=== PATIENT | male | born 1995 | race Caucasian/White ===

== ENCOUNTER 2016-08-31 14:53 | Emergency (ER) | payer OTHER ==
--- NOTE | 2016-08-31 15:59 | DIAGNOSTIC IMAGING REPORT ---
PROCEDURE: CT HEAD WITHOUT CONTRAST INDICATION: HEAD INJURY, HX OF SEIZURE, ALTERED MENTAL STATUS TECHNIQUE: Axial CT images were acquired through the head. Coronal and sagittal reformations were created. COMPARISON: None. FINDINGS: No intracranial hemorrhage or extraaxial fluid collections. Ventricles are normal in size, shape and position. There is no mass, mass effect or midline shift. The alfaro-white matter differentiation is normal. There is no edema. The calvarium is intact. The paranasal sinuses and mastoid air cells are normally aerated. The extracranial soft tissues and orbits are normal. IMPRESSION: 1. No CT evidence of acute intracranial process. 2. Findings discussed with emergency department at 04:[address] scans at this facility use dose modulation, iterative reconstruction, and/or weight-based dosing when appropriate to reduce radiation dose to as low as reasonably achievable.
--- NOTE | 2016-08-31 18:09 | DIAGNOSTIC IMAGING REPORT ---
PROCEDURE: XR RIBS UNILAT W/PA CHEST-LT INDICATION: POSSIBLE TRAUMA FROM SEIZURE SEVERAL DAYS AGO TECHNIQUE: Two views of the left ribs with single PA view chest. COMPARISON: None. FINDINGS: LEFT RIBS: No displaced rib fractures. No suspicious rib lesions. CHEST: Normal cardiomediastinal contour. Clear lungs without pleural effusion, pneumothorax, or contusion. The other visible osseous structures are intact. IMPRESSION: 1. Intact left ribs. 2. Normal chest without radiographic evidence of trauma.
--- NOTE | 2016-08-31 18:31 | ED NURSING NOTES ---
Clinical Report - Nurses [facility] [address] [place] [address] 08/31/2016 14:57 Patient: JAMAL STERLING TRIAGE Triage time 15:Aug 31 2016. Acuity: LEVEL 3. Chief Complaint: ALTERED MENTAL STATUS and CONFUSED and (dizzy). Alert. No acute distress. GENNA COMA SCORE: [place] Coma Scale: 15- eyes open spontaneously (4); best verbal response- oriented x 4 (5); best motor response- obeys commands (6). --15:13 Coco Kc R.N. 15:06 08/31/16. BP: 117/68. HR: 67. RR: 13. O2 saturation: 100%. Temp: 98.2 F. Pain level now: 09/16. Additional comments: aching. --15:13 Coco Kc R.N. Weight: 68 kg stated. Height/Length: 70 inches Per Patient. BMI: 21.5. --15:11 Coco Kc R.N. Medications HumaLOG Subcutaneous. --15:09 oCco Kc R.N. Lantus Subcutaneous. --15:09 Coco Kc R.N. Keppra Oral. --15:09 Coco Kc R.N. Allergies None. --15:09 Coco Kc R.N. History Arrived by private vehicle. Historian: family. Accompanied by family. This started about 6 days. ( pts mother states that pt had seizure last week and then again on Sunday. Mother states pt was hospitalized on Sunday and since he was released he has had dizziness confusion, trouble with thoughts and speaking and some weakness.). He has had weakness. PAST MEDICAL HX: Immunizations: up-to-date. SOCIAL HX: Never smoker. No alcohol use or drug use. No infectious disease exposure. SELF HARM ASSESSMENT: A self harm assessment was performed. The patient answered "no" to the question "Do you have thoughts of harming or killing yourself?". FALL RISK ASSESSMENT: Fall risk assessment completed. No fall risk identified. NUTRITIONAL RISK ASSESSMENT: The nutritional risk assessment revealed no deficiencies. FUNCTIONAL ASSESSMENT: Functional assessment: no impairments noted. LEARNING NEEDS ASSESSMENT: The learning needs assessment revealed no barriers. ABUSE ASSESSMENT: Abuse assessment: The patient was asked "Do you feel safe in your home?". SKIN INTEGRITY ASSESSMENT: Skin integrity risk assessment completed. No skin integrity risk identified. --15:13 Coco Kc R.N. PROBLEMS: MVP. Back Injury. Diabetes Mellitus. Seizure. --15:10 Coco Kc R.N. ADDITIONAL SURGERIES: Dental Surgery. --15:10 Coco Kc R.N. Interventions ID band on patient. To room. --15:13 Coco Kc R.N. PHYSICAL ASSESSMENT GENERAL / NEURO / PSYCH: Alert. Oriented X 4. Patient appears well-nourished and neat and clean. RESPIRATORY: Respirations not labored. CVS: Capillary refill less than 2 seconds. GI / : Abdomen soft and nontender. SKIN: Skin is warm and dry. --15:14 Coco Kc R.N. NURSING PROGRESS NOTES groundwater monitoring technician, pulse oximeter and NIBP monitor placed on patient; front desk monitor- Lead II; monitor alarms on. Patient gowned. Head of bed elevated. Patient identifiers checked. Call light placed in reach. Side rails up x 2. Bed placed in lowest position. Brakes of bed on. --15:14 Coco Kc R.N. 15:41. Patient transported to CT by stretcher with tech. --15:44 Micki Miller ER Tech1 15:39 08/31/2016 Site #1 started via IV in the right antecubital space with an 20g angiocath (Placed by SURI Buckley). --15:54 Jonas Gold R.N. 15:54 08/31/2016 Started bag #1 1000 mL IV Fluids IV NS (Saline); bolus of 1000 mL over 1 hour(s) via site #1 via dial-a-flow. Allergies verified and confirmed 5 rights. IV patency established. IV site checked: no pain, redness, or swelling. IV flushed thoroughly pre- and post-medication administration. Completed per protocol. --15:54 Jonas Gold R.N. GENERAL / NEURO / PSYCH: The patient reports anxiety (pt anxious over IV states that he is having pain after 700cc infused. No redness or blancing noted. offered to relocate IV and pt declined stating that he will keep this one.). Alert. Oriented X 4. --16:31 Coco Kc R.N. 16:28 08/31/16. BP: 101/58. HR: 73. RR: 12. O2 saturation: 99%. Pain level now: 0/10. --16:31 Coco Kc R.N. 16:56. Finger stick glucose: 232 mg/dL; performed by tech; result shown to the ED physician. --16:56 Micki Miller ER Tech1 ( MD in room talking with patient and mother.). --17:11 Coco Kc R.N. 17:05 08/31/16. --17:11 Coco Kc R.N. 17:16 08/31/16. BP: 110/62. HR: 63. RR: 15. O2 saturation: 97%. Pain level now: 0/10. --17:16 Coco Kc R.N. DISPOSITION / DISCHARGE Departure time: 19:Aug 31 2016. Condition at departure: unchanged. No learning barriers present. Discharge instructions provided and reviewed with the patient. Reviewed referral to a primary care physician for followup. Patient verbalized understanding. Written instructions provided in Ukrainian. The patient was discharged home and accompanied by parent. He left the Emergency Department ambulatory and via private vehicle. Parent driving. FALL RISK ASSESSMENT: Fall risk assessment completed. No fall risk identified. --19:07 Coco Kc R.N. 19:06 08/31/16. BP: 105/63. HR: 55. RR: 16. O2 saturation: 97%. Pain level now: 0/10. --19:07 Coco Kc R.N. Locked/Released at 09/05/2016 13:00 by Celeste Buenrostro R.N.
--- NOTE | 2016-08-31 18:31 | ED NURSING NOTES ---
Clinical Report - Nurses [facility] [address] [place] [address] 08/31/2016 14:57 Patient: JAMAL STERLING TRIAGE Triage time 15:Aug 31 2016. Acuity: LEVEL 3. Chief Complaint: ALTERED MENTAL STATUS and CONFUSED and (dizzy). Alert. No acute distress. GENNA COMA SCORE: [place] Coma Scale: 15- eyes open spontaneously (4); best verbal response- oriented x 4 (5); best motor response- obeys commands (6). --15:13 Coco Kc R.N. 15:06 08/31/16. BP: 117/68. HR: 67. RR: 13. O2 saturation: 100%. Temp: 98.2 F. Pain level now: 09/16. Additional comments: aching. --15:13 Coco Kc R.N. Weight: 68 kg stated. Height/Length: 70 inches Per Patient. BMI: 21.5. --15:11 Coco Kc R.N. Medications HumaLOG Subcutaneous. --15:09 Coco Kc R.N. Lantus Subcutaneous. --15:09 Coco Kc R.N. Keppra Oral. --15:09 Coco Kc R.N. Allergies None. --15:09 Coco Kc R.N. History Arrived by private vehicle. Historian: family. Accompanied by family. This started about 6 days. ( pts mother states that pt had seizure last week and then again on Sunday. Mother states pt was hospitalized on Sunday and since he was released he has had dizziness confusion, trouble with thoughts and speaking and some weakness.). He has had weakness. PAST MEDICAL HX: Immunizations: up-to-date. SOCIAL HX: Never smoker. No alcohol use or drug use. No infectious disease exposure. SELF HARM ASSESSMENT: A self harm assessment was performed. The patient answered "no" to the question "Do you have thoughts of harming or killing yourself?". FALL RISK ASSESSMENT: Fall risk assessment completed. No fall risk identified. NUTRITIONAL RISK ASSESSMENT: The nutritional risk assessment revealed no deficiencies. FUNCTIONAL ASSESSMENT: Functional assessment: no impairments noted. LEARNING NEEDS ASSESSMENT: The learning needs assessment revealed no barriers. ABUSE ASSESSMENT: Abuse assessment: The patient was asked "Do you feel safe in your home?". SKIN INTEGRITY ASSESSMENT: Skin integrity risk assessment completed. No skin integrity risk identified. --15:13 Coco Kc R.N. PROBLEMS: MVP. Back Injury. Diabetes Mellitus. Seizure. --15:10 Coco Kc R.N. ADDITIONAL SURGERIES: Dental Surgery. --15:10 Coco Kc R.N. Interventions ID band on patient. To room. --15:13 Coco Kc R.N. PHYSICAL ASSESSMENT GENERAL / NEURO / PSYCH: Alert. Oriented X 4. Patient appears well-nourished and neat and clean. RESPIRATORY: Respirations not labored. CVS: Capillary refill less than 2 seconds. GI / : Abdomen soft and nontender. SKIN: Skin is warm and dry. --15:14 Coco Kc R.N. NURSING PROGRESS NOTES groundwater monitoring technician, pulse oximeter and NIBP monitor placed on patient; groundwater monitoring technician- Lead II; monitor alarms on. Patient gowned. Head of bed elevated. Patient identifiers checked. Call light placed in reach. Side rails up x 2. Bed placed in lowest position. Brakes of bed on. --15:14 Coco Kc R.N. 15:41. Patient transported to CT by stretcher with tech. --15:44 Micki Miller ER Tech1 15:39 08/31/2016 Site #1 started via IV in the right antecubital space with an 20g angiocath (Placed by SURI Buckley). --15:54 Jonas Gold R.N. 15:54 08/31/2016 Started bag #1 1000 mL IV Fluids IV NS (Saline); bolus of 1000 mL over 1 hour(s) via site #1 via dial-a-flow. Allergies verified and confirmed 5 rights. IV patency established. IV site checked: no pain, redness, or swelling. IV flushed thoroughly pre- and post-medication administration. Completed per protocol. --15:54 Jonas Gold R.N. GENERAL / NEURO / PSYCH: The patient reports anxiety (pt anxious over IV states that he is having pain after 700cc infused. No redness or blancing noted. offered to relocate IV and pt declined stating that he will keep this one.). Alert. Oriented X 4. --16:31 Coco Kc R.N. 16:28 08/31/16. BP: 101/58. HR: 73. RR: 12. O2 saturation: 99%. Pain level now: 0/10. --16:31 Coco Kc R.N. 16:56. Finger stick glucose: 232 mg/dL; performed by tech; result shown to the ED physician. --16:56 Micki Miller ER Tech1 ( MD in room talking with patient and mother.). --17:11 Coco Kc R.N. 17:05 08/31/16. --17:11 Coco Kc R.N. 17:16 08/31/16. BP: 110/62. HR: 63. RR: 15. O2 saturation: 97%. Pain level now: 0/10. --17:16 Coco Kc R.N. DISPOSITION / DISCHARGE Departure time: 19:Aug 31 2016. Condition at departure: unchanged. No learning barriers present. Discharge instructions provided and reviewed with the patient. Reviewed referral to a primary care physician for followup. Patient verbalized understanding. Written instructions provided in Welsh. The patient was discharged home and accompanied by parent. He left the Emergency Department ambulatory and via private vehicle. Parent driving. FALL RISK ASSESSMENT: Fall risk assessment completed. No fall risk identified. --19:07 Coco Kc R.N. 19:06 08/31/16. BP: 105/63. HR: 55. RR: 16. O2 saturation: 97%. Pain level now: 0/10. --19:07 Coco Kc R.N. Locked/Released at 09/05/2016 13:00 by Celeste Buenrostro R.N.
--- NOTE | 2016-08-31 18:31 | ED CLINICAL REPORT ---
Clinical Report - Physicians/Mid Levels [facility] [address] [place] [address] 08/31/2016 14:57 Patient: JAMAL STERLING Time Seen: 1511. Arrived- By private vehicle. Historian- patient and mother. HISTORY OF PRESENT ILLNESS Chief Complaint: CHANGED MENTAL STATUS. The patient has "felt strange" and had trouble concentrating. This started past several days and is still present (unchanged). It was abrupt in onset and has been constant but is not gone now. Patient was last known well (several days ago). (known seizure hx. had one prior to the onset of symptoms. recovered without problems.). No weakness, numbness or recent fall. No difficulty walking. Usually is alert and oriented X3 and usually has normal mobility. (hx of DM 1 and on insulin. also on muscle relaxers but reportedly taking them infrequently.). Similar symptoms previously: None. Recent medical care: The patient was seen recently by a health care provider. REVIEW OF SYSTEMS No fever, chest pain or difficulty breathing. He sustained a head injury (possible from seizure and fall. + LOC). reports anterior chest wall pain after the seizure. constant. worsen with movement. All systems otherwise negative, except as recorded above. PAST HISTORY See nurses notes. Medications: Keppra Oral. Lantus Subcutaneous. HumaLOG Subcutaneous. Allergies: None. SOCIAL HISTORY Never smoker. History of occasional drug use: marijuana. No alcohol use. No recent travel. Is a local resident. PHYSICAL EXAM Appearance: Alert. No acute distress. Head: Head atraumatic. Eyes: Pupils equal, round and reactive to light. ENT: Normal ENT inspection. Airway intact. Moist mucous membranes. Pharynx normal. (no dalton sign. No raccoon eyes. Normocephalic. Atraumatic. No hematoma.). Neck: Normal inspection. Neck supple. No meningeal signs. CVS: Normal heart rate and rhythm. Heart sounds normal. Pulses normal. Respiratory: No respiratory distress. Breath sounds normal. Abdomen: Soft and nontender. No organomegaly. Back: Normal inspection. Skin: Skin warm and dry. Normal skin color. No rash. Normal skin turgor. Extremities: Extremities exhibit normal ROM. No lower extremity edema. Neuro: Alert. Oriented X 3. Mood/affect normal. Speech normal. Cranial nerves normal (as tested). No cerebellar findings. No motor deficit. No sensory deficit. Reflexes normal. LABS, X-RAYS, AND EKG Chest X-ray: (PROCEDURE: CT HEAD WITHOUT CONTRAST INDICATION: HEAD INJURY, HX OF SEIZURE, ALTERED MENTAL STATUS TECHNIQUE: Axial CT images were acquired through the head. Coronal and sagittal reformations were created. COMPARISON: None. FINDINGS: No intracranial hemorrhage or extraaxial fluid collections. Ventricles are normal in size, shape and position. There is no mass, mass effect or midline shift. The alfaro-white matter differentiation is normal. There is no edema. The calvarium is intact. The paranasal sinuses and mastoid air cells are normally aerated. The extracranial soft tissues and orbits are normal. IMPRESSION: 1. No CT evidence of acute intracranial process.). The X-rays were independently viewed by me and interpreted by the radiologist. The X-rays were discussed with the radiologist (pacs and phone). CT Head: (PROCEDURE: CT HEAD WITHOUT CONTRAST INDICATION: HEAD INJURY, HX OF SEIZURE, ALTERED MENTAL STATUS TECHNIQUE: Axial CT images were acquired through the head. Coronal and sagittal reformations were created. COMPARISON: None. FINDINGS: No intracranial hemorrhage or extraaxial fluid collections. Ventricles are normal in size, shape and position. There is no mass, mass effect or midline shift. The alfaro-white matter differentiation is normal. There is no edema. The calvarium is intact. The paranasal sinuses and mastoid air cells are normally aerated. The extracranial soft tissues and orbits are normal. IMPRESSION: 1. No CT evidence of acute intracranial process.). The study was independently viewed by me and interpreted by the radiologist. The study was discussed with the radiologist (via pacs and phone). Laboratory Tests: UA-Culture if indicated: (CHAPO: 08/31/2016 17:12) ( MsgRcvd 08/31/2016 17:38) Final results Test Result Flag Units (Reference) URINE COLOR YELLOW URINE APPEARANCE CLEAR URINE GLUCOSE TRACE (NEGATIVE) URINE BILIRUBIN NEGATIVE (NEGATIVE) URINE KETONE NEGATIVE (NEGATIVE) URINE SPECIFIC GRAVITY 1.020 (1.010-1.030) URINE PH 7.0 (5.0-8.0) URINE PROTEIN 1+ (NEGATIVE) URINE UROBILINOGEN 0.2 EU/dL (0.2-1.0) URINE NITRITE NEGATIVE (NEGATIVE) URINE BLOOD NEGATIVE (NEGATIVE) URINE LEUK ESTERASE NEGATIVE (NEGATIVE) URINE RBC 0-1 rbc/hpf (0-1) URINE WBC 0-1 wbc/hpf (0-1) URINE EPITHELIAL CELLS NONE SEEN EPI/hpf (0-5) URINE BACTERIA TRACE (<1+) (NONE SEEN) 1+ MUCOUS URINE COMMENT CULT NOT INDICATED URINE CULTURES ARE SET-UP BASED ON THE FOLLOWING CRITERIA:POSITIVE NITRITEPOSITIVE LEUKOCYTE ESTERASEGREATER THAN 10 WHITE BLOOD CELLSMODERATE (2+) OR GREATER BACTERIA CBC w Diff: (CHAPO: 08/31/2016 15:05) ( MsgRcvd 08/31/2016 15:33) Final results Test Result Flag Units (Reference) WHITE BLOOD COUNT 7.6 K/uL (4.5-11.5) RED BLOOD COUNT 5.34 M/uL (4.50-5.90) HEMOGLOBIN 15.4 gm/dL (13.5-17.5) HEMATOCRIT 45.8 % (41.0-53.0) MEAN CELL VOLUME 86 fL (80-100) MEAN CORPUSCULAR HGB 29 pg (26-34) MEAN CORPUSCULAR HGB CONC 34 g/dL (31-37) RED CELL DISTRIBUTION WIDTH 12.7 % (11.6-14.8) PLATELET COUNT 240 K/uL (150-400) NEUTROPHIL % 64.4 % (50-75) LYMPH % 26.9 % (25-40) MONO % 6.8 % (3-14) EOSINOPHIL % 1.3 % (0-4) BASOPHIL % 0.6 % (0-2) PT with INR: (CHAPO: 08/31/2016 15:05) ( NmgRcvd 08/31/2016 15:34) Final results Test Result Flag Units (Reference) INR 1.1 (0.8-1.2) Low Intensity Therapy: INR 1.5-2.0 PT range 18.5-23.1Mod.Intensity Therapy: INR 2.0-3.0 PT range 23.1-31.5High Intensity Therapy: INR 2.5-3.5 PT range 27.4-35.5High Intensity Therapy 2: INR 3.0-4.0 PT range 31.5-39.3 Urine Drug Screen: (CHAPO: 08/31/2016 17:12) ( [facility] [place] Final results Test Result Flag Units (Reference) AMPHETAMINE/METHAMPHETAMINE NEGATIVE (NEGATIVE) BARBITURATE NEGATIVE (NEGATIVE) BENZODIAZEPINE NEGATIVE (NEGATIVE) CANNABINOID POSITIVE H (NEGATIVE) COCAINE NEGATIVE (NEGATIVE) ECSTASY NEGATIVE (NEGATIVE) METHADONE NEGATIVE (NEGATIVE) OPIATE NEGATIVE (NEGATIVE) The urine drug screen is a qualitative screening test fordrug overdose and abuse. All screen results should beconsidered as presumptive.Drugs screened for are as follows:BenzodiazepinesCocaineAmphetamines/MetamphetaminesTHC (Tetrahydrocannabinol)OpiatesBarbituratesEcstasyMethadonePositive results are unconfirmed. For confirmation, notifythe lab for the specimen to be sent to the reference lab.All confirmations must be performed by a differentmethodology.The ingestion of natural herbal and plant productscontaining Ephedra/Ephedra metabolites can produce in urineone or more substances capable of cross reacting withamphetamine/methamphetamine immunoassays. These testsprovide a preliminary result only. A more specificalternative chemical method must be used to obtain aconfirmed analytical result. CMP: (CHAPO: 08/31/2016 15:05) ( NmgRcvd 08/31/2016 15:58) Final results Test Result Flag Units (Reference) GLUCOSE 144 H mg/dL (70-110) BUN 16 mg/dL (7-18) CREATININE 0.8 mg/dL (0.6-1.3) Estimated GFR >60 mL/min Estimated GFR- >60 mL/min Note: Persistent reduction over 3 months in eGFR<60 mL/min/1.73 m2 defines CKD. Patients with eGFR values>=60 mL/min/1.73 m2 may also have CKD if evidence ofpersistent proteinuria. Additional information may be foundat www.kidney.org. SODIUM 144 mmol/L (136-145) POTASSIUM 3.8 mmol/L (3.5-5.1) CHLORIDE 106 mmol/L (98-107) CARBON DIOXIDE 28 mmol/L (21-32) CALCIUM 8.5 mg/dL (8.5-10.1) TOTAL PROTEIN 7.2 g/dL (6.4-8.2) ALBUMIN 4.0 g/dL (3.3-5.0) BILIRUBIN, TOTAL 0.3 mg/dL (0.0-1.0) ALKALINE PHOSPHATASE 72 U/L (46-116) AST (SGOT) 25 U/L (15-37) ALT (SGPT) 28 U/L (12-78) MAGNESIUM 1.9 mg/dL (1.8-2.4) THYROID STIMULATING HORMONE 0.704 uIU/mL (0.34-3.74) . PROGRESS AND PROCEDURES Course of Care: The patient is a pleasant 21-year-old male presenting for evaluation of altered mental status after having a seizure. Incident had occurred several days ago. Patient still withdifficulty with concentrating. Likely post concussive syndrome. Patient will be evaluated for any indolent type of headbleed. Patient also be fired for any rib injury noted from patient's seizure. Laboratory studies will also be ordered for the patient's reported altered mental status including any electrolyte abnormalities from any metabolic derangements. Be particularly concerned for possible diabetic ketoacidosis in a history of DM type I. We'll to be fighting for any signs of thyroid abnormality given the patient's symptoms. Patient is agreeable to the treatment and plan. All questions have been answered. The patient's workup was noted for no acute abnormalities on the patient's chest x-ray as well as CT scan of the head. Urinalysis did not show any signs of urinary tract infection. Diabetes has been well-controlled. No ketones in the urinalysis. No signs of diabetic ketoacidosis. Thyroid as well as blood count are noted to be normal. Because of the patient's negative workup here in the emergency department, do not feel patient requires admission to the hospital or further emergency department workup/evaluation. Several possible causes for the patient's altered mental status have been found. Patient with a positive urine drug screen for marijuana. Patient also has been reported taking his muscle relaxant. Patient could also have postconcussive syndrome following the seizure several days ago. Had explained to the patient as well as the patient's mother the difficulty with evaluating those types of problems and recommended patientabstain from any sedative type of medicationsto see if his symptoms improved. If not been postconcussive syndrome more likely. I discussion with the patient in regards to his workup here in the emergency department including diagnosis, home care, follow-up, and return precautions. All questions have been answered. The patient and mother expressed understanding of these instructions and was agreeable to them. Disposition: Discharged. Condition: good. CLINICAL IMPRESSION Acute mental status change. Generalized seizure (recheck). 08/31/2016 16:28 BP: 101/58. HR: 73. RR: 12. O2 saturation: 99%. Pain level now: 0/10. Oxygen saturation normal. Mild hyperglycemia (acute secondary to DM 1). Single contusion to the left anterior chest. INSTRUCTIONS Warnings: GENERAL WARNINGS: Return or contact your physician immediately if your condition worsens or changes unexpectedly, if not improving as expected, or if other problems arise. Specifically return if pain, vomiting, bleeding, breathing difficulty or fever. Your Current Medications: CONTINUE TAKING THE FOLLOWING MEDICATIONS: HumaLOG Subcutaneous. Keppra Oral. Lantus Subcutaneous. Follow-up: Return to the emergency department as needed. Follow up with your doctor in three days. Reason for referral: recheck today's concerns. Screening today revealed the patient's blood pressure to be in the normal range. The patient should follow up with a primary care provider for blood pressure management. Understanding of the discharge instructions verbalized by patient and parent. Follow-up with: Rachid Cornelius MD, Neurology, , [address], , [place], [id number] Follow up. Call for the next available appointment. Reason for referral: recheck today's concerns. Summary of care provided to patient and family via paper. (Electronically signed by Soham Hightower Dr. 09/04/2016 6:51)
--- NOTE | 2016-08-31 18:31 | ED ORDER SUMMARY ---
..... 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) (15:18 08/31/2016 Duy Ivey) (15:53 MCjohnnak R.N.) CBC w Diff Urgent (15:19 08/31/2016 Duy Ivey) (Ack 15:19 Milly) (16:05 KKnebel R.N.) CMP Urgent (15:08/31/2016 Duy Ivey) (Ack 15:19 Milly) (16:05 KKnebel R.N.) UA-Culture if indicated Urgent (15:08/31/2016 Duy Ivey) (Ack 15:19 Milly) (18:03 KKnebel R.N.) PT with INR Urgent (15:19 08/31/2016 Duy Ivey) (Ack 15:19 Milly) (16:05 JESSIEnebel R.N.) Urine Drug Screen Urgent (15:19 08/31/2016 Duy Ivey) (Ack 15:19 Milly) (18:03 KKnebel R.N.) TSH Urgent (15:08/31/2016 Duy Ivey) (Ack 15:19 Milly) (16:05 JESSIEnebel R.N.) Magnesium Urgent (15:19 08/31/2016 Duy Ivey) (Ack 15:19 Milly) (16:05 JESSIEnebel R.N.) Pulse oximeter (15:08/31/2016 Duy Ivey) (15:53 Chongk R.N.) POC Glucose (15:08/31/2016 Duy Ivey) (16:05 JESSIEnebel R.N.) CT Head wo Cont Urgent (15:35 08/31/2016 Duy Ivey) (Ack 15:40 Milly) (16:34 MCampbell) Ribs Unilat w PA Chest Left Urgent (17:10 08/31/2016 Duy Ivey) (Ack 17:12 AMcQuoid ER Tech1) (17:37 Milly) MEDICATION ORDERS: IV FLUIDS: IV NS : initial bolus 1000 mL (1000 mL/hr), then none - for X1 (NOW) (15:18 08/31/2016 uDy Ivey) (15:54 Mandie Hicks) ORDER SHEET NOTES: [Electronically signed by Soham Hightower Dr. (06:51 09/04/2016)] [Electronically signed by Celeste Buenrostro R.N. (13:00 09/05/2016)] [Electronically locked/signed by Celeste Buenrostro R.N. (13:00 09/05/2016)]
--- NOTE | 2016-08-31 18:31 | ED ORDER SUMMARY ---
..... 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 Tanbark (Continuous) (seizures) (15:18 08/31/2016 Duy Ivey) (15:53 MCjohnnak R.N.) CBC w Diff Urgent (15:19 08/31/2016 Duy Ivey) (Ack 15:19 Milly) (16:05 KKnebel R.N.) CMP Urgent (15:08/31/2016 Duy Ivey) (Ack 15:19 Milly) (16:05 KKnebel R.N.) UA-Culture if indicated Urgent (15:08/31/2016 Duy Ivey) (Ack 15:19 Milly) (18:03 KKnebel R.N.) PT with INR Urgent (15:19 08/31/2016 Duy Ivey) (Ack 15:19 Milly) (16:05 JESSIEnebel R.N.) Urine Drug Screen Urgent (15:19 08/31/2016 Duy Ivey) (Ack 15:19 Milly) (18:03 KKnebel R.N.) TSH Urgent (15:08/31/2016 Duy Ivey) (Ack 15:19 Milly) (16:05 JESSIEnebel R.N.) Magnesium Urgent (15:19 08/31/2016 Duy Ivey) (Ack 15:19 Milly) (16:05 JESSIEnebel R.N.) Pulse oximeter (15:08/31/2016 Duy Ivey) (15:53 Chongk R.N.) POC Glucose (15:08/31/2016 Duy Ivey) (16:05 JESSIEnebel R.N.) CT Head wo Cont Urgent (15:35 08/31/2016 Duy Ivey) (Ack 15:40 Milly) (16:34 MCampbell) Ribs Unilat w PA Chest Left Urgent (17:10 08/31/2016 Duy Ivey) (Ack 17:12 AMcQuoid ER Tech1) (17:37 Milly) MEDICATION ORDERS: IV FLUIDS: IV NS : initial bolus 1000 mL (1000 mL/hr), then none - for X1 (NOW) (15:18 08/31/2016 Duy Ivey) (15:54 Mandie Hicks) ORDER SHEET NOTES: [Electronically signed by Soham Hightower Dr. (06:51 09/04/2016)] [Electronically signed by Celeste Buenrostro R.N. (13:00 09/05/2016)] [Electronically locked/signed by Celeste Buenrostro R.N. (13:00 09/05/2016)]
--- NOTE | 2016-09-05 13:00 | ED MAR SUMMARY ---
..... Medication Administration Record [facility] [address] [place] [address] Patient: JAMAL STERLING Visit ID: [id number] 21y, M Weight: 68.0 kg Height/Length: 70 in BMI: 21.5 ALLERGIES: None Start 15:54 08/31/2016 Jonas Gold R.N. Medication Administered: IV NS (SALINE), Dose: IV Fluids, Bolus: 1000 mL over 1 hour(s), Dispensed: 1000 mL bag, Site: #1 right AC. Medication Ordered: IV NS : initial bolus 1000 mL (1000 mL/hr), then none - for X1 (NOW).
--- NOTE | 2016-09-05 13:00 | ED MED RECONCILIATION SUMMARY ---
Patient: JAMAL STERLING Medication Reconciliation Report [facility] VisitID: [id number] [address] [place] [place] [address] 21y, M Registration Date/Time: 08/31/2016 Weight: 68.0 kg Height/Length: 70 in. BMI: 21.5 ALLERGIES: None The patient's Home Medications are listed below: CONTINUE TAKING THE FOLLOWING MEDICATIONS: HumaLOG Subcutaneous Keppra Oral Lantus Subcutaneous The source(s) of the original Home Medication information: Not obtained. The following Medications were given to the patient in the Emergency Department: IV NS IV Fluids bolus 1000 mL over 1 hour(s), administered: 08/31/2016 3:54:00 PM The following Medications were prescribed to the patient: None.
--- NOTE | 2016-09-05 13:00 | ED DISCHARGE INSTRUCTIONS ---
Patient: JAMAL STERLING General Instructions [facility] VisitID: [id number] [address] [place] [address] 21y, M Registration Date/Time: 08/31/2016 Acute mental status change. Generalized seizure (recheck). 08/31/2016 16:28 BP: 101/58. HR: 73. RR: 12. O2 saturation: 99%. Pain level now: 0/10. Oxygen saturation normal. Mild hyperglycemia (acute secondary to DM 1). Single contusion to the left anterior chest. INSTRUCTIONS Warnings: GENERAL WARNINGS: Return or contact your physician immediately if your condition worsens or changes unexpectedly, if not improving as expected, or if other problems arise. Specifically return if pain, vomiting, bleeding, breathing difficulty or fever. Your Current Medications: CONTINUE TAKING THE FOLLOWING MEDICATIONS: HumaLOG Subcutaneous. Keppra Oral. Lantus Subcutaneous. Follow-up: Return to the emergency department as needed. Follow up with your doctor in three days. Reason for referral: recheck today's concerns. Screening today revealed the patient's blood pressure to be in the normal range. The patient should follow up with a primary care provider for blood pressure management. Understanding of the discharge instructions verbalized by patient and parent. Follow-up with: Rachid Cornelius MD, Neurology, , [id number], , [place], [id number] Follow up. Call for the next available appointment. Reason for referral: recheck today's concerns. Summary of care provided to patient and family via paper. ADDITIONAL INFORMATION Altered Level Of Consciousness (Child) Level of consciousness is a measure of a persons ability to interact with other people and to react to the surroundings. A child with an altered level of consciousness may be irritable for a number of hours. The child cannot be calmed by holding, rocking, or feeding. Some children may be hyperactive and cant sleep. Others may be very sleepy and difficult to wake. Affected children may appear limp, with poor muscle tone. They may not respond to touch or voices. Their look may be vacant or blank. They may not make eye contact. Their cry may be weak and feeble. Some children may not move for a long time or show little interest in moving. They may be confused. There are many causes of altered consciousness. Generally, they are divided into medical reasons or injuries. The child may have low blood sugar, an infection, a metabolic abnormality, or a systemic disease. Other causes include drugs, abuse, or injuries such as a fall. A decreased level of consciousness is a medical emergency. Doctors must quickly determine the cause. This may include laboratory, radiology, and other types of testing. Initial treatment stabilizes breathing and heart rate. An intravenous (IV) line is used to give medications. Once the cause is determined,specific treatment for that cause is given. In almost all cases, the child will be admitted to the hospital for observation. Home Care: Medications: If any medications are prescribed, follow the doctors instructions for giving them to your child. General Care: Observe your child carefully for any changes in behavior. Stay with your child if you notice any altered behavior. If your child has diabetes, make sure that any approved medication is given on time and as prescribed. Give your child frequent healthy snacks and meals. Ensure your child is supervised while playing sports. Appropriate protective gear should be worn at all times. Follow Up as advised by the doctor or our staff. Get Prompt Medical Attention if any of the following occurs: Fever greater than 100.4F (38C) Extreme tiredness or difficulty waking; hyperactivity Lack of interest in the surroundings Poor muscle tone or limpness Weak, feeble cry No eye contact or response to touch or voices Increased headache Seizure Recurrent Seizure [Adult] You have had another seizure today. A common cause of recurrent seizure is missing doses of the seizure medicine. However, sometimes seizures are difficult to control even when you take the medicine correctly. If this is the case for you, it may be necessary to increase your dosage or add or change to another medicine. Home Care: For This Seizure: Since seizures are not predictable, you must avoid doing anything that might cause danger to you or others if you have another one. Therefore, until the seizures are under good control, take these precautions: Do not drive a car, bicycle or motorcycle Do not operate dangerous equipment such as power tools Use a shower instead of a bath Do not swim or climb (ladders, trees, roofs) Tell your close friends and relatives about your seizure and teach them what to do for you if it happens again. If you were prescribed a medicine to prevent seizures, take it exactly as directed. It does not work when taken on an "as needed" basis. Missing doses will increase the risk of having another seizure. If you miss a dose, take the missed dose as soon as you remember. If it is almost time for your next dose, skip the missed dose. Restart the medicine at your next scheduled time. Do not take extra medicine to make up the missed dose. Wear a "Medic-Alert" bracelet to advise emergency personnel of your condition. For Future Seizures: If You Are Alone: If you feel a seizure coming on, the best thing to do is to lie down on a bed or on the floor. Lie on your side, not on your back. This will prevent falling, promote drainage of oral secretions out of the mouth and prevent choking. Be sure that you are clear of any objects that might injure you during the seizure. Call for help if there is time. If Someone Is With You: If someone is with you before the seizure, they should help you get in a safe position and call for help. They should not try to force anything in your mouth once the seizure has begun. Doing this may cause injury. Follow Up with your doctor, or as directed by our staff. NOTE: For the safety of yourself and others on the road, certain states require that the treating doctor inform the Public Health Department of any adult who is treated for a seizure and is at risk of further seizures. In this case, the Department of Motor Vehicles (DMV) will be notified and a restriction will be placed on your drivers license until a doctor gives you medical clearance to drive again. Contact your treating doctor to find out if your state requires the reporting of patients with a seizures condition. Get Prompt Medical Attention if any of the following occur: Seizures occurring more often or becoming longer than usual Seizure lasting over 5 minutes No wake-up between seizures Remaining confused for more than 30 minutes after a seizure Injury during a seizure Fever over 100.4F (38.0C) Unusual irritability, drowsiness or confusion Stiff or painful neck Worsening headache Diabetes with High Blood Sugar You have been treated for high blood sugar (hyperglycemia). This may be becauseof an infection or other illness;eating too many sweets or starches ; not taking enough insulin. Home care High blood sugar may cause symptoms that you can learn to recognize, such as these: If you feel like your blood sugar may be too high, measure it using a blood or urine test. If it is above your usual range, use the "sliding scale"rRegular insulin dose your doctor gave you to correct this. If no "sliding scale" orders were given, contact your doctor for further advice. If your blood sugar is over 300, and you can't reach your doctor, go to the hospital emergency room. Monitor and write down your blood sugars - and insulin dose, if you take insulin - atleast twice a day. Do this before breakfast and before dinner. Do this for the next 3 to 5 days. Follow-up care Follow up with your health care provderduring the next week to review your blood sugar records. You will find out if you need to adjust your dose of insulin or other medicine for blood sugar. When to seek medical care Get prompt medical attention if either of these occur: High blood sugar.Symptoms are frequent urination, feeling dizzy, thirst, headache, nausea or vomiting, abdominal pain, and drowsiness or loss of consciousness. Low blood sugar. Symptoms are fatigue, headache, shakes, excess sweating, hunger, anxiety, reduced vision, drowsiness, weakness, confusion or loss of consciousness, and seizure. You have been given the following additional information: Altered Level Of Consciousness (Child) Seizure, Recurrent [Adult] Diabetic Hyperglycemia (Electronically signed by Soham Hightower Dr. 09/04/2016 6:51)
--- NOTE | 2016-09-05 13:00 | ED MAR SUMMARY ---
..... Medication Administration Record [facility] [address] [place] [address] Patient: JAMAL STERLING Visit ID: [id number] 21y, M Weight: 68.0 kg Height/Length: 70 in BMI: 21.5 ALLERGIES: None Start 15:54 08/31/2016 Jonas Gold R.N. Medication Administered: IV NS (SALINE), Dose: IV Fluids, Bolus: 1000 mL over 1 hour(s), Dispensed: 1000 mL bag, Site: #1 right AC. Medication Ordered: IV NS : initial bolus 1000 mL (1000 mL/hr), then none - for X1 (NOW).
--- NOTE | 2016-09-05 13:00 | ED MED RECONCILIATION SUMMARY ---
Patient: JAMAL STERLING Medication Reconciliation Report [facility] VisitID: [id number] [address] [place] [place] [address] 21y, M Registration Date/Time: 08/31/2016 Weight: 68.0 kg Height/Length: 70 in. BMI: 21.5 ALLERGIES: None The patient's Home Medications are listed below: CONTINUE TAKING THE FOLLOWING MEDICATIONS: HumaLOG Subcutaneous Keppra Oral Lantus Subcutaneous The source(s) of the original Home Medication information: Not obtained. The following Medications were given to the patient in the Emergency Department: IV NS IV Fluids bolus 1000 mL over 1 hour(s), administered: 08/31/2016 3:54:00 PM The following Medications were prescribed to the patient: None.
== END 2016-08-31 19:07 | disposition home or self-care (01) ==
LOC: ED SRH 14:53
DX: S20.212A Contusion of left front wall of thorax, initial encounter (principal); R41.82 Altered mental status, unspecified; F12.10 Cannabis abuse, uncomplicated; E10.65 Type 1 diabetes mellitus with hyperglycemia; G40.309 Generalized idiopathic epilepsy and epileptic syndromes, not intractable, without status epilepticus; X58.XXXA Exposure to other specified factors, initial encounter; Z79.4 Long term (current) use of insulin